=== PATIENT | male | born 1960 | race Caucasian/White ===

== ENCOUNTER 2016-09-13 22:23 | Inpatient (IN) | payer OTHER ==
--- NOTE | ~2016-09-13 | DS ---
Discharge Summary [facility] [address] [place]. [address] NAME: VARUN FLANNERY : 60 STATUS : DIS IN PAT#: [id number] AGE: 56 ADM/REG DATE : 09/14/16 MR#: [id number] REPORT SERV DATE: 09/24/16 DICTATED BY: AUDIE DSOUZA DATE: 09/23/16 REPORT STATUS : Draft TRANSCRIBED BY: MODL DATE: 09/23/16 ADMISSION DATE: 09/14/2016 DISCHARGE DATE: 09/23/2016 DISCHARGE DIAGNOSES: 1. Complicated diverticulitis. 2. Partial small bowel obstruction, now resolved. 3. History of atrial fibrillation with Hiltv-Rfbgyptny-Nlsiu syndrome, currently stable. 4. Hypertension. 5. Hypothyroidism. CONSULTANTS DURING THIS HOSPITALIZATION: Raulito Garza M.D., of General Surgery. PROCEDURES DONE DURING THIS HOSPITALIZATION: Please refer to interim summary dictated by Dr. Coardo. BRIEF HISTORY OF PRESENT ILLNESS: The patient is a 56-year-old white male, who presented with sepsis-like picture and acute diverticulitis, so he was admitted. For detailed history and physical exam, please see note dictated by Dr. Jatin Fair on 09/13/2016. HOSPITAL COURSE: After being admitted to the hospital, this patient was cared for by Dr. Corado. Please refer to Dr. Corado interim summary dictated on 09/20/2016. I took over this patient's care on 09/21/2016. This patient still had some nausea and had significant output in his NG tube. Over the next 24 hours, this patient improved. He started having more bowel movements, and they were liquid in nature. We started him on a clear liquid diet, removed his NG tube, and in the last 24 to 48 hours with this patient, we have advanced his diet to full liquid. He is having now more formed stools. He is fully ambulatory, and he feels well enough that he wants to go home and recover in the home setting. DISCHARGE DISPOSITION: Home. DISCHARGE ACTIVITY: As tolerated after release from the surgical appointment in three weeks. DISCHARGE DIET: GI, soft. DISCHARGE MEDICATIONS: Levaquin 750 mg p.o. once daily and Flagyl 500 mg p.o. three times daily, both for four days; aspirin 325 mg once daily; Peridex rinse as needed; Maximum D3, 1000 units once daily; Nature-Throid 113.75 mg once every morning; testosterone 200 mg IM once every 7 days; and Arimidex 1 mg once every 7 days. DISCHARGE FOLLOWUP: With Dr. Raulito Garza in two to three weeks and with Dr. Mcrae in one to two weeks. More than 30 minutes spent planning this patient's discharge, reconciling medications, writing prescriptions, discussing hospital care and followup with the patient, and documenting this discharge. Discharge Summary [address] [place]. [address] NAME: VARUN FLANNERY : 60 STATUS : DIS IN PAT#: [id number] AGE: 56 ADM/REG DATE : 09/14/16 MR#: [id number] REPORT SERV DATE: 09/24/16 DICTATED BY: AUDIE DSOUZA DATE: 09/23/16 REPORT STATUS : Draft TRANSCRIBED BY: BLAKE DATE: 09/23/16 DARLING/BLAKE Audie Dsouza M.D. / [id number] CC: Yoko Milton DENNIS C.
--- NOTE | ~2016-09-13 | HP ---
History And Physical [address] [place]. [address] NAME: VARUN FLANNERY : 60 STATUS : ADM IN [facility]#: [id number] AGE: 56 ADM/REG DATE : 09/14/16 MR#: [id number] REPORT SERV DATE: 09/14/16 DICTATED BY: JONATHAN WATERS DATE: 09/14/16 REPORT STATUS : Draft TRANSCRIBED BY: MODL DATE: 09/14/16 DATE OF ADMISSION: 09/14/2016 [facility] COMPLAINT: A 56-year-old male presenting with acute diverticulitis. HISTORY OF PRESENTING ILLNESS: The patient's history was obtained through careful interview with the patient, coupled with review of [facility] medical records. The patient, on (also his birthday), developed sudden onset of abdominal pain. It has increased over the last 48 hours. He describes as a midabdominal discomfort radiating to his left lower quadrant and also to the "top of my penis" and into his testicles sometimes a pressure-like quality, 12/10 severity that has become constant now. Has had subjective fevers, chills, and nausea, but no vomiting. A very poor appetite. Sometimes, he feels constipated. He has had lightheadedness. No confusion. No chest pain. No cough. No shortness of breath. About four days ago, he had a wisdom tooth extracted, but has had no pain or complications from this procedure. REVIEW OF SYSTEMS: Otherwise, a 14-point review of systems was obtained and was negative. PAST MEDICAL HISTORY: 1. Atrial fibrillation, status post cardiac ablation. 2. WPW, supraventricular tachycardia, nonsustained ventricular tachycardia, status post cardiac ablation. 3. Angina with negative catheterization of the heart. 4. Hypertension. 5. Hypothyroidism. 6. Hypotestosteronism. PAST SURGICAL HISTORY: 1. Cardiac ablation. 2. Right hand surgery. ALLERGIES: CODEINE. SOCIAL HISTORY: Quit smoking in 2010. Occasionally drinks wine. He is . Lives in [place], [place]. He has children, 10 grandchildren. 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 History And Physical [address] [place] [address] NAME: VARUN FLANNERY : 60 STATUS : ADM IN PAT#: [id number] AGE: 56 ADM/REG DATE : 09/14/16 MR#: [id number] REPORT SERV DATE: 09/14/16 DICTATED BY: JONATHAN WATERS DATE: 09/14/16 REPORT STATUS : Draft TRANSCRIBED BY: BLAKE DATE: 09/14/16 FAMILY HISTORY: Coronary artery disease. CURRENT MEDICATIONS: Include amoxicillin 875 mg p.o. b.i.d. to last 10 days, Arimidex 1 mg every week, aspirin 325 mg p.o. daily, chlorhexidine mouthwash since his wisdom tooth was extracted, vitamin D, hydrocodone p.r.n., ibuprofen p.r.n., Phenergan p.r.n., testosterone every week, Nature-Throid supplement. PHYSICAL EXAMINATION: VITAL SIGNS: Temperature 98.5, pulse 112, blood pressure 138/83, respiratory rate 20, O2 saturation 97% on room air. GENERAL: An ill-appearing male, who is describing distress from abdominal pain and nausea. HEENT: Pupils equal, round, and reactive to light. No conjunctival pallor. No scleral icterus. Nares are patent. Oropharynx is clear of obstruction. Dry mucous membranes. NECK: Trachea midline. No thyromegaly. LYMPH: No cervical lymphadenopathy. No supraclavicular lymphadenopathy. No inguinal lymphadenopathy. RESPIRATORY: Clear to auscultation at bases. No wheezes, rales, or rhonchi. Normal respiratory effort. CARDIOVASCULAR: Tachycardic. Regular rhythm. No murmurs, rubs, or gallops. No extremity edema is appreciated. ABDOMEN: Significant suprapubic area and lower pelvic left lower quadrant abdominal discomfort with guarding. No rebound. Nondistended. No hepatosplenomegaly. DERMATOLOGIC: Warm and dry extremities. No pallor. No cyanosis. PSYCHIATRIC: Normal affect. Good mood. Alert and oriented x3. LABORATORY DATA: White blood cell count 21, hemoglobin 17, hematocrit 49, platelets 300. Sodium 135, potassium 3.8, chloride 100, bicarb 23, BUN 12, creatinine 0.98, glucose 112, lipase 43, lactic acid 0.9. Liver enzymes within limits. STUDIES: CT scan of the abdomen shows acute diverticulitis. ASSESSMENT AND PLAN: 1. Sepsis with white blood cell count of 21. Tachycardia. Evidence of acute diverticulitis. Check blood cultures. Negative lactate. Place on IV antibiotics. 2. Acute diverticulitis. Place on IV narcotic pain management secondary to [address] on IV Flagyl, IV Levaquin. 3. History of arrhythmias. Check telemetry. KATHLEEN/BLAKE Jonathan Waters M.D. / [id number] History And Physical [address] [address] NAME: VARUN FLANNERY : 60 STATUS : ADM IN [facility]#: [id number] AGE: 56 ADM/REG DATE : 09/14/16 MR#: [id number] REPORT SERV DATE: 09/14/16 DICTATED BY: JONATHAN WATERS DATE: 09/14/16 REPORT STATUS : Draft TRANSCRIBED BY: BLAKE DATE: 09/14/16 CC: Yoko Milton M.D., F.A.C.C.
--- NOTE | ~2016-09-13 | CN ---
Consultation Report [facility] [address] [place]. [address] NAME: VARUN FLANNERY : 60 STATUS : ADM IN PAT#: [id number] AGE: 56 ADM/REG DATE : 09/14/16 MR#: [id number] REPORT SERV DATE: 09/17/16 DICTATED BY: RAULITO HAYNES DATE: 09/16/16 REPORT STATUS : Draft TRANSCRIBED BY: MODL DATE: 09/16/16 CONSULT NOTE DATE OF CONSULTATION: 09/16/2016 REASON FOR REQUEST: Evaluation of diverticulitis, possible bowel obstruction. HISTORY OF PRESENT ILLNESS: The patient is a 56-year-old gentleman, who was in his usual state of health, when he started developing abdominal pain last week. This progressively worsened. It was associated with constipation and some lower abdominal pain. He states it was in suprapubic area and left side initially. Since it persisted and progressively worsened and he felt subjectively febrile, he initially went to an urgent care and then presented to [facility] Emergency Room. Workup included a noncontrast CT scan which demonstrated evidence of uncomplicated diverticulitis. While hospitalized, his white count and suprapubic tenderness markedly improved, however, his reports that he had two episodes of emesis, one yesterday and one the day before yesterday, and he has really not eaten much, and he has not had a bowel movement at all he states since last Tuesday. They did give him some milk of magnesia earlier today, and he had some loose stools and passed some flatus but he said he did not have a normal bowel movement. Then around 1:30 or 2 o'clock this afternoon, he started developing worsening abdominal pain. He states the pain will sometimes double over and then ease up. He has never experienced pain similar as before. Denies any precipitating or alleviating factors. He did try to have earlier today. He has not had any emesis today but the reports he really has had two bouts of emesis and has not eaten much since he has been hospitalized. Abdominal film on does demonstrate some evidence of dilated small bowel, and a flat and upright obtained today demonstrates evidence for possible bowel obstruction with massively dilated small bowel. PAST MEDICAL HISTORY: Xbwbf-Uqlvwzovi-Fqeni syndrome, hypertension, hypothyroidism, and arthritis. PREVIOUS SURGERIES: Include cardiac ablation and hand surgery. ALLERGIES: CODEINE WHICH CAUSES NAUSEA AND VOMITING. SOCIAL HISTORY: He quit smoking several years ago. He drinks wine on occasion. He is . 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 FAMILY HISTORY: Noncontributory. MEDICATIONS: Medications taken at home include Amoxil, Arimidex, aspirin, Motrin, and testosterone. REVIEW OF SYSTEMS: Consultation Report [place] [id number] [facility] [place]. [address] NAME: VARUN FLANNERY : 60 STATUS : ADM IN [facility]#: [id number] AGE: 56 ADM/REG DATE : 09/14/16 MR#: [id number] REPORT SERV DATE: 09/17/16 DICTATED BY: RAULITO HAYNES DATE: 09/16/16 REPORT STATUS : Draft TRANSCRIBED BY: BLAKE DATE: 09/16/16 A comprehensive 12-point review of systems obtained and completely negative other than what is mentioned in history of present illness. PHYSICAL EXAMINATION: VITAL SIGNS: Temperature is 97.8, pulse 101, respirations 22, blood pressure 138/93. GENERAL: He is a well-developed gentleman who is in no acute cardiopulmonary distress. HEENT: Pupils are equal, round, and reactive to light. Extraocular movements intact. Conjunctivae nonicteric. NECK: Supple. He has no jugular venous distention. No carotid bruits. No cervical lymphadenopathy. PULMONARY: Normal respiratory effort. Breath sounds are clear. CARDIOVASCULAR: Regular rate and rhythm. ABDOMEN: Distended. His bowel sounds seem diminished. He has no palpable masses and no diffuse peritoneal signs. LABORATORY DATA: White blood cell count is 9 this morning. Hematocrit 44, platelet count 320. Sodium 139, potassium 3.6, chloride 102, CO2 of 25, BUN 12, creatinine 0.7, glucose 107. Flat and upright abdominal films demonstrate markedly dilated small bowel up to 5 cm. There is no pneumoperitoneum identified. Blood cultures are normal. CT scan from the 17th emergency room demonstrates evidence of diverticulitis with pelvic abscess or perforation. ASSESSMENT: 1. Diverticulitis. 2. Ileus versus a mechanical small bowel obstruction. 3. History of Oyagn-Ujfzvubxm-Xeypp syndrome and hypertension. PLAN: I recommend nasogastric tube for decompression. A repeat CT scan is ordered and is pending at this time. We will also obtain a small-bowel follow-through on him to help determine if this is an ileus from his diverticulitis versus mechanical obstruction. He has not had any previous abdominal surgeries. We will await the CT scan to evaluate him further, and we will continue to follow this patient along with you. AMANDEEP/BLAKE Raulito Haynes M.D. Consultation Report [address] [place]. [address] NAME: VARUN FLANNERY : 60 STATUS : ADM IN PAT#: [id number] AGE: 56 ADM/REG DATE : 09/14/16 MR#: [id number] REPORT SERV DATE: 09/17/16 DICTATED BY: RAULITO HAYNES DATE: 09/16/16 REPORT STATUS : Draft TRANSCRIBED BY: BLAKE DATE: 09/16/16 / [id number] CC: Yoko Escobar
--- NOTE | ~2016-09-13 | IDS ---
Interim Discharge Summary [facility] [address] [place]. [address] NAME: VARUN FLANNERY : 60 STATUS : ADM IN [facility]#: [id number] AGE: 56 ADM/REG DATE : 09/14/16 MR#: [id number] REPORT SERV DATE: 09/20/16 DICTATED BY: ERIK BERMAN DATE: 09/20/16 REPORT STATUS : Draft TRANSCRIBED BY: MODL DATE: 09/20/16 ADMISSION DATE: 09/14/2016 DISCHARGE DATE: CURRENT HOSPITAL DIAGNOSES: 1. Diverticulitis. 2. Small bowel obstruction. 3. History of atrial fibrillation, Msoqe-Eflexsboh-Kuadz, no recurrence. 4. Hypertension. 5. Hypothyroidism. CONSULTATIONS: Surgery, Dr. Garza. PROCEDURES: CT of abdomen and pelvis done on 09/13/2016 showing acute uncomplicated sigmoid diverticulitis. Repeat CT on 09/16/2016 showing a small amount of pneumoperitoneum, ascites suggesting a bowel perforation, although the site is not identified, persistent diffuse thickening in the sigmoid colon with mild diverticulosis and infiltration of surrounding fat planes suggesting acute diverticulitis, increasing infiltration of small bowel mesentery throughout the abdomen and pelvis, dilated segment of proximal small bowel to the level of the mid ilium measuring up to 4.2 cm in diameter with air-fluid levels numerous, suggest a new onset of moderate severe asymmetric small bowel ileus or partial small bowel obstruction, atelectasis enteric to proximal stomach. Repeat CT of abdomen and pelvis on 09/20/2016 showing minimal pneumoperitoneum ascites, dilated proximal and mid small bowel with nondilated distal small bowel indicating probable low-grade partial small bowel obstruction, minimal bibasilar atelectasis, nasogastric tube, gastric body diverticulosis with sigmoid diverticulitis, not significantly changed. CURRENT PHYSICAL FINDINGS AND HISTORY OF PRESENT ILLNESS: Please see dictated H and P by Dr. Fair. In brief, the patient is a 56-year-old male with above medical history who presented with abdominal pain, suprapubic and rectal pain. Vital signs at time of admission; temperature was 98.5, the patient's T-maxs have been in the 99 point range, heart rates have been consistently approximately 70s, and blood pressures have been 150s to 160 systolic. LABORATORY DATA: BMP on admission and multiple rechecks have been normal. Of note, his TSH on 09/14/2016 was 10. Lipase on admission was 46. Lactates have been normal throughout his hospital stay. White count on presentation was 21,000. He sequentially decreased until 09/16/2016 to white count of 9. He has been approximately 12 on repeat checks since that time. Urinalysis was unremarkable. Blood cultures done on 09/13/2016 are negative to date. The patient was admitted for uncomplicated diverticulitis. He was started on Levaquin and Flagyl, electrolyte replacement, held n.p.o., reasonable pain and antiemetics were given. He was placed on a liquid diet. I saw him on 09/14/2016. He was improving. His diet was increased as tolerated. His pain medications were making him nauseated, they were changed to Dilaudid. On 09/15/2016, serial labs were followed. He requested university administrative assistant with his bowel movement. Milk of magnesium and lactulose were given. His n.p.o. was minimal, so IV fluids were started on 09/16/2016. Flat and upright were also done. He appeared to have obstruction. Surgical consult was requested and repeat CT of abdomen was done with the Interim Discharge Summary [address] [place]. [address] NAME: VARUN FLANNERY : 60 STATUS : ADM IN [facility]#: [id number] AGE: 56 ADM/REG DATE : 09/14/16 MR#: [id number] REPORT SERV DATE: 09/20/16 DICTATED BY: ERIK BERMAN DATE: 09/20/16 REPORT STATUS : Draft TRANSCRIBED BY: BLAKE DATE: 09/20/16 noted bowel obstruction and free air on his CT. Surgery was consulted. NG tube was placed. Gastrografin small bowel followthrough was ordered, however, the patient was not able to retain the contrast. He was also switched to Zosyn at that time. His IV fluids were continued. He was held n.p.o. Serial x-rays were done with noted improvement. His Synthroid was changed to IV. He had some tentative urinary retention, but this resolved. He continued to improve. Serial CTs were showing improvement. He has been started on some mild liquids at this time. DISPOSITION: PT will be seeing him. Surgery will continue dietary recommendations and removal of his tube when appropriate. He is still on IV Zosyn. He continues to improve clinically. TLF/MODL Erik Berman M.D. / [id number] CC: Yoko Escobar DENNIS C.
[2016-09-13 21:39] LABS: BASOPHILS 0.1 %; BASOPHILS ABSOLUTE 0.02 10/3/uL (0.0-0.16); EOSINOPHILS 0 %; IMMATURE GRANULOCYTES 0.3 %; IMMATURE GRANULOCYTES ABSOLUTE 0.07 10/3/uL (0.0-0.11); LYMPHOCYTES 4.2 %; LYMPHOCYTES ABSOLUTE 0.88 10/3/uL (0.67-4.30); MEAN PLATELET VOLUME 9.4 fL (9.2-13.0); MONOCYTES 5.9 %; MONOCYTES ABSOLUTE 1.24 10/3/uL (0.21-1.20); NEUTROPHILS 89.5 %; NEUTROPHILS ABSOLUTE 18.74 10/3/uL (2.02-8.40); PLATELET COUNT 300 10/3/uL (150-400); RBC DISTRIBUTION WIDTH 15.2 % (12.0-16.0); RED CELL COUNT 5.63 10/6/uL (4.7-6.1)
[2016-09-13 21:41] LABS: ER CBC TAT 0 Hrs 09 Mins; HEMATOCRIT 48.6 % (40.0-51.0); HEMOGLOBIN 16.8 g/dL (13.6-17.8); MANUAL DIFF NO %; MEAN CORPUS HGB CONC 34.6 g/dL (32.0-36.0); MEAN CORPUSCULAR HEMOGLOB 29.8 pg (26.0-34.0); MEAN CORPUSCULAR VOLUME 86.3 fL (80-100)
[2016-09-13 21:55] LABS: A/G RATIO 0.8 (0.7-1.9); ALBUMIN 3.6 G/DL (3.5-5.0); ALKALINE PHOSPHATASE 41 U/L (45-117); BUN (BLOOD UREA NITROGEN) 12 MG/DL (6-23); CALCIUM, SERUM 8.9 MG/DL (8.5-10.4); CHLORIDE, SERUM 100 MMOL/L (96-112); CO2 (CARBON DIOXIDE) 23 MMOL/L (24-34); CREATININE 0.98 MG/DL (0.70-1.30); GFR AFRICAN AMERICAN 99 ML/MIN (>=60); GFR NON AFRICAN AMERICAN 86 ML/MIN (>=60); GLOBULIN 4.3 G/DL (2.5-4.1); GLUCOSE, SERUM 112 MG/DL (60-99); POTASSIUM, SERUM 3.8 MMOL/L (3.5-5.3); SGOT(AST) 8 U/L (5-40); SGPT(ALT) 23 U/L (5-65); SODIUM, SERUM 135 MMOL/L (135-148); TOTAL BILIRUBIN 1.3 MG/DL (0-1.2); TOTAL PROTEIN 7.9 G/DL (6.0-8.5)
[~2016-09-13 22:23] MED LIST: ARIMIDEX1 PO; ARMOUR THYRO60 MG PO; ASABAYER PO; FISH OIL1200 MG PO; PROGESTERONE CREAM TOP; PROTONIX PO; TESTOST CYP100 MG/ML IM
[2016-09-13 23:17] LABS: ASCORBIC ACID (UR NOT ORDER) NEG (NEG); BILIRUBIN, URINE NEGATIVE (NEG); ER URINALYSIS TAT 0 Hrs 00 Mins; KETONE, URINE TRACE MG/DL (NEG); LEUKOCYTE ESTERASE(NOT OR NEG (NEG); NITRITE (URINE) NEG (NEG); WBC (NOT ORDERED) (RFLEX) 1 (0-5)
[2016-09-13 23:30] LABS: LACTATE 0.9 MMOL/L (0.3-2.4)
[2016-09-13] MEDS ORDERED: ASABAYER PO (23:48)
[2016-09-13] MEDS ORDERED: NORCO1 TA1 PO (23:49)
[2016-09-13] MEDS ORDERED: NATURE THROID PO (23:49)
[2016-09-13] MEDS ORDERED: PR25 PO (23:49)
[2016-09-13] MEDS ORDERED: PERIDEX PO (23:50)
[2016-09-13] MEDS ORDERED: AMOXIL875 MG PO (23:50)
[2016-09-13] MEDS ORDERED: IBU600 PO (23:51)
[2016-09-13] MEDS ORDERED: TESTOST CYP100 MG/ML IM (23:52)
[2016-09-13] MEDS ORDERED: ARIMIDEX1 PO (23:52)
[2016-09-13] MEDS ORDERED: MAXIMUM D3 PO (23:53)
[2016-09-14 05:36] LABS: BASOPHILS 0.1 %; BASOPHILS ABSOLUTE 0.02 10/3/uL (0.0-0.16); EOSINOPHILS 0.2 %; EOSINOPHILS ABSOLUTE 0.03 10/3/uL (0.0-0.53); HEMATOCRIT 45.5 % (40.0-51.0); HEMOGLOBIN 15.5 g/dL (13.6-17.8); IMMATURE GRANULOCYTES 0.4 %; IMMATURE GRANULOCYTES ABSOLUTE 0.06 10/3/uL (0.0-0.11); LYMPHOCYTES 4.7 %; LYMPHOCYTES ABSOLUTE 0.78 10/3/uL (0.67-4.30); MANUAL DIFF NO %; MEAN CORPUS HGB CONC 34.1 g/dL (32.0-36.0); MEAN CORPUSCULAR HEMOGLOB 29.8 pg (26.0-34.0); MEAN CORPUSCULAR VOLUME 87.5 fL (80-100); MEAN PLATELET VOLUME 9.6 fL (9.2-13.0); MONOCYTES 7.1 %; MONOCYTES ABSOLUTE 1.18 10/3/uL (0.21-1.20); NEUTROPHILS 87.5 %; NEUTROPHILS ABSOLUTE 14.53 10/3/uL (2.02-8.40); PLATELET COUNT 267 10/3/uL (150-400); RBC DISTRIBUTION WIDTH 14.9 % (12.0-16.0); WHITE BLOOD CELLS 16.6 10/3/uL (4.5-10.5)
[2016-09-14 05:43] LABS: INTERNATIONAL NORMAL RATI 1.3 UNITS (-); PROTIME (NOT ORD) 16.3 SEC (12.0-14.5)
[2016-09-14 05:59] LABS: A/G RATIO 0.7 (0.7-1.9); ALKALINE PHOSPHATASE 37 U/L (45-117); BUN (BLOOD UREA NITROGEN) 12 MG/DL (6-23); CALCIUM, SERUM 8.4 MG/DL (8.5-10.4); CHLORIDE, SERUM 100 MMOL/L (96-112); CO2 (CARBON DIOXIDE) 26 MMOL/L (24-34); CREATININE 0.89 MG/DL (0.70-1.30); GFR AFRICAN AMERICAN 111 ML/MIN (>=60); GFR NON AFRICAN AMERICAN 96 ML/MIN (>=60); GLOBULIN 4.1 G/DL (2.5-4.1); GLUCOSE, SERUM 105 MG/DL (60-99); POTASSIUM, SERUM 3.9 MMOL/L (3.5-5.3); SGOT(AST) 6 U/L (5-40); SGPT(ALT) 23 U/L (5-65); SODIUM, SERUM 136 MMOL/L (135-148); TOTAL BILIRUBIN 1.5 MG/DL (0-1.2); TOTAL PROTEIN 7.1 G/DL (6.0-8.5)
[2016-09-15 05:00] LABS: BASOPHILS 0.2 %; BASOPHILS ABSOLUTE 0.02 10/3/uL (0.0-0.16); EOSINOPHILS 1.4 %; EOSINOPHILS ABSOLUTE 0.16 10/3/uL (0.0-0.53); HEMATOCRIT 45.6 % (40.0-51.0); HEMOGLOBIN 15.2 g/dL (13.6-17.8); IMMATURE GRANULOCYTES 0.3 %; IMMATURE GRANULOCYTES ABSOLUTE 0.03 10/3/uL (0.0-0.11); LYMPHOCYTES 7.4 %; LYMPHOCYTES ABSOLUTE 0.85 10/3/uL (0.67-4.30); MANUAL DIFF NO %; MEAN CORPUS HGB CONC 33.3 g/dL (32.0-36.0); MEAN CORPUSCULAR HEMOGLOB 29.7 pg (26.0-34.0); MEAN CORPUSCULAR VOLUME 89.1 fL (80-100); MEAN PLATELET VOLUME 9.4 fL (9.2-13.0); MONOCYTES 9.3 %; MONOCYTES ABSOLUTE 1.06 10/3/uL (0.21-1.20); NEUTROPHILS 81.4 %; PLATELET COUNT 261 10/3/uL (150-400); RBC DISTRIBUTION WIDTH 14.5 % (12.0-16.0); RED CELL COUNT 5.12 10/6/uL (4.7-6.1); WHITE BLOOD CELLS 11.4 10/3/uL (4.5-10.5)
[2016-09-15 05:13] LABS: ALKALINE PHOSPHATASE 33 U/L (45-117); BUN (BLOOD UREA NITROGEN) 10 MG/DL (6-23); CALCIUM, SERUM 8.4 MG/DL (8.5-10.4); CHLORIDE, SERUM 106 MMOL/L (96-112); CO2 (CARBON DIOXIDE) 26 MMOL/L (24-34); CREATININE 0.78 MG/DL (0.70-1.30); GFR AFRICAN AMERICAN 117 ML/MIN (>=60); GFR NON AFRICAN AMERICAN 101 ML/MIN (>=60); GLUCOSE, SERUM 98 MG/DL (60-99); SGPT(ALT) 14 U/L (5-65); SODIUM, SERUM 139 MMOL/L (135-148)
[2016-09-15 05:14] LABS: A/G RATIO 0.6 (0.7-1.9); ALBUMIN 2.3 G/DL (3.5-5.0); GLOBULIN 3.7 G/DL (2.5-4.1); POTASSIUM, SERUM 5.1 MMOL/L (3.5-5.3); SGOT(AST) 3 U/L (5-40)
[2016-09-16 04:26] LABS: BASOPHILS 0.1 %; BASOPHILS ABSOLUTE 0.01 10/3/uL (0.0-0.16); EOSINOPHILS 2.1 %; EOSINOPHILS ABSOLUTE 0.19 10/3/uL (0.0-0.53); IMMATURE GRANULOCYTES 0.3 %; IMMATURE GRANULOCYTES ABSOLUTE 0.03 10/3/uL (0.0-0.11); LYMPHOCYTES 8.3 %; LYMPHOCYTES ABSOLUTE 0.75 10/3/uL (0.67-4.30); MEAN CORPUS HGB CONC 34.1 g/dL (32.0-36.0); MEAN CORPUSCULAR HEMOGLOB 29.7 pg (26.0-34.0); MEAN CORPUSCULAR VOLUME 87.1 fL (80-100); MEAN PLATELET VOLUME 9.3 fL (9.2-13.0); MONOCYTES 11.6 %; MONOCYTES ABSOLUTE 1.04 10/3/uL (0.21-1.20); NEUTROPHILS 77.6 %; NEUTROPHILS ABSOLUTE 6.97 10/3/uL (2.02-8.40); PLATELET COUNT 320 10/3/uL (150-400); RBC DISTRIBUTION WIDTH 14.3 % (12.0-16.0); RED CELL COUNT 5.05 10/6/uL (4.7-6.1)
[2016-09-16 04:27] LABS: MANUAL DIFF NO %
[2016-09-16 04:37] LABS: BUN (BLOOD UREA NITROGEN) 12 MG/DL (6-23); CALCIUM, SERUM 8.6 MG/DL (8.5-10.4); CHLORIDE, SERUM 102 MMOL/L (96-112); CO2 (CARBON DIOXIDE) 25 MMOL/L (24-34); CREATININE 0.79 MG/DL (0.70-1.30); GFR AFRICAN AMERICAN 116 ML/MIN (>=60); GFR NON AFRICAN AMERICAN 100 ML/MIN (>=60); GLUCOSE, SERUM 107 MG/DL (60-99); SODIUM, SERUM 139 MMOL/L (135-148)
[2016-09-16 04:38] LABS: POTASSIUM, SERUM 3.6 MMOL/L (3.5-5.3)
[2016-09-17 00:08] LABS: BASOPHILS 0.1 %; BASOPHILS ABSOLUTE 0.01 10/3/uL (0.0-0.16); EOSINOPHILS 0 %; HEMATOCRIT 43.5 % (40.0-51.0); HEMOGLOBIN 14.8 g/dL (13.6-17.8); IMMATURE GRANULOCYTES 0.3 %; IMMATURE GRANULOCYTES ABSOLUTE 0.04 10/3/uL (0.0-0.11); LYMPHOCYTES 6.3 %; LYMPHOCYTES ABSOLUTE 0.74 10/3/uL (0.67-4.30); MEAN CORPUSCULAR HEMOGLOB 29.8 pg (26.0-34.0); MEAN CORPUSCULAR VOLUME 87.5 fL (80-100); MEAN PLATELET VOLUME 9.3 fL (9.2-13.0); MONOCYTES 7.1 %; MONOCYTES ABSOLUTE 0.84 10/3/uL (0.21-1.20); NEUTROPHILS 86.2 %; NEUTROPHILS ABSOLUTE 10.14 10/3/uL (2.02-8.40); PLATELET COUNT 333 10/3/uL (150-400); RBC DISTRIBUTION WIDTH 14.2 % (12.0-16.0); RED CELL COUNT 4.97 10/6/uL (4.7-6.1); WHITE BLOOD CELLS 11.8 10/3/uL (4.5-10.5)
[2016-09-17 00:09] LABS: MANUAL DIFF NO %
[2016-09-17 00:17] LABS: INTERNATIONAL NORMAL RATI 1.3 UNITS (-); PROTIME (NOT ORD) 16.3 SEC (12.0-14.5)
[2016-09-17 00:24] LABS: A/G RATIO 0.6 (0.7-1.9); ALBUMIN 2.4 G/DL (3.5-5.0); ALKALINE PHOSPHATASE 33 U/L (45-117); BUN (BLOOD UREA NITROGEN) 14 MG/DL (6-23); CHLORIDE, SERUM 107 MMOL/L (96-112); CO2 (CARBON DIOXIDE) 27 MMOL/L (24-34); CREATININE 0.85 MG/DL (0.70-1.30); GFR AFRICAN AMERICAN 113 ML/MIN (>=60); GFR NON AFRICAN AMERICAN 97 ML/MIN (>=60); GLOBULIN 3.8 G/DL (2.5-4.1); GLUCOSE, SERUM 121 MG/DL (60-99); SGOT(AST) 7 U/L (5-40); SGPT(ALT) 14 U/L (5-65); SODIUM, SERUM 141 MMOL/L (135-148); TOTAL PROTEIN 6.2 G/DL (6.0-8.5)
[2016-09-17 00:27] LABS: POTASSIUM, SERUM 4.5 MMOL/L (3.5-5.3)
[2016-09-17 06:47] LABS: BASOPHILS 0.1 %; BASOPHILS ABSOLUTE 0.01 10/3/uL (0.0-0.16); EOSINOPHILS 0.1 %; EOSINOPHILS ABSOLUTE 0.01 10/3/uL (0.0-0.53); HEMATOCRIT 43.8 % (40.0-51.0); HEMOGLOBIN 14.8 g/dL (13.6-17.8); IMMATURE GRANULOCYTES 0.4 %; IMMATURE GRANULOCYTES ABSOLUTE 0.05 10/3/uL (0.0-0.11); LYMPHOCYTES 6.7 %; MEAN CORPUS HGB CONC 33.8 g/dL (32.0-36.0); MEAN CORPUSCULAR HEMOGLOB 29.7 pg (26.0-34.0); MEAN CORPUSCULAR VOLUME 87.8 fL (80-100); MEAN PLATELET VOLUME 9.6 fL (9.2-13.0); MONOCYTES 7.9 %; MONOCYTES ABSOLUTE 0.95 10/3/uL (0.21-1.20); NEUTROPHILS 84.8 %; NEUTROPHILS ABSOLUTE 10.19 10/3/uL (2.02-8.40); PLATELET COUNT 321 10/3/uL (150-400); RBC DISTRIBUTION WIDTH 14.6 % (12.0-16.0); RED CELL COUNT 4.99 10/6/uL (4.7-6.1)
[2016-09-17 06:51] LABS: MANUAL DIFF NO %
[2016-09-17 07:06] LABS: BUN (BLOOD UREA NITROGEN) 14 MG/DL (6-23); CALCIUM, SERUM 8.3 MG/DL (8.5-10.4); CHLORIDE, SERUM 107 MMOL/L (96-112); CO2 (CARBON DIOXIDE) 29 MMOL/L (24-34); CREATININE 0.94 MG/DL (0.70-1.30); GFR AFRICAN AMERICAN 105 ML/MIN (>=60); GFR NON AFRICAN AMERICAN 90 ML/MIN (>=60); GLUCOSE, SERUM 111 MG/DL (60-99); POTASSIUM, SERUM 5.1 MMOL/L (3.5-5.3); SODIUM, SERUM 142 MMOL/L (135-148)
[2016-09-18 06:02] LABS: CALCIUM, SERUM 8.4 MG/DL (8.5-10.4); CHLORIDE, SERUM 110 MMOL/L (96-112); CO2 (CARBON DIOXIDE) 28 MMOL/L (24-34); CREATININE 0.83 MG/DL (0.70-1.30); GFR AFRICAN AMERICAN 114 ML/MIN (>=60); GFR NON AFRICAN AMERICAN 98 ML/MIN (>=60); GLUCOSE, SERUM 114 MG/DL (60-99); SODIUM, SERUM 146 MMOL/L (135-148)
[2016-09-18 06:04] LABS: BUN (BLOOD UREA NITROGEN) 20 MG/DL (6-23)
[2016-09-18 06:10] LABS: BASOPHILS 0.1 %; BASOPHILS ABSOLUTE 0.02 10/3/uL (0.0-0.16); EOSINOPHILS 0.1 %; EOSINOPHILS ABSOLUTE 0.01 10/3/uL (0.0-0.53); HEMATOCRIT 42.5 % (40.0-51.0); HEMOGLOBIN 13.9 g/dL (13.6-17.8); IMMATURE GRANULOCYTES 0.3 %; IMMATURE GRANULOCYTES ABSOLUTE 0.04 10/3/uL (0.0-0.11); LYMPHOCYTES 3.7 %; MEAN CORPUS HGB CONC 32.7 g/dL (32.0-36.0); MEAN CORPUSCULAR HEMOGLOB 29.1 pg (26.0-34.0); MEAN CORPUSCULAR VOLUME 89.1 fL (80-100); MEAN PLATELET VOLUME 9.7 fL (9.2-13.0); MONOCYTES 9.2 %; MONOCYTES ABSOLUTE 1.25 10/3/uL (0.21-1.20); NEUTROPHILS 86.6 %; NEUTROPHILS ABSOLUTE 11.79 10/3/uL (2.02-8.40); PLATELET COUNT 354 10/3/uL (150-400); RBC DISTRIBUTION WIDTH 14.7 % (12.0-16.0); RED CELL COUNT 4.77 10/6/uL (4.7-6.1); WHITE BLOOD CELLS 13.6 10/3/uL (4.5-10.5)
[2016-09-18 06:12] LABS: MANUAL DIFF NO %
[2016-09-19 05:43] LABS: BASOPHILS 0.2 %; BASOPHILS ABSOLUTE 0.03 10/3/uL (0.0-0.16); EOSINOPHILS 0.1 %; EOSINOPHILS ABSOLUTE 0.01 10/3/uL (0.0-0.53); HEMATOCRIT 40.2 % (40.0-51.0); HEMOGLOBIN 13.1 g/dL (13.6-17.8); IMMATURE GRANULOCYTES 0.4 %; IMMATURE GRANULOCYTES ABSOLUTE 0.07 10/3/uL (0.0-0.11); LYMPHOCYTES 4.3 %; LYMPHOCYTES ABSOLUTE 0.71 10/3/uL (0.67-4.30); MEAN CORPUS HGB CONC 32.6 g/dL (32.0-36.0); MEAN CORPUSCULAR HEMOGLOB 28.9 pg (26.0-34.0); MEAN CORPUSCULAR VOLUME 88.7 fL (80-100); MEAN PLATELET VOLUME 9.5 fL (9.2-13.0); MONOCYTES 6.3 %; MONOCYTES ABSOLUTE 1.04 10/3/uL (0.21-1.20); NEUTROPHILS 88.7 %; NEUTROPHILS ABSOLUTE 14.77 10/3/uL (2.02-8.40); PLATELET COUNT 360 10/3/uL (150-400); RED CELL COUNT 4.53 10/6/uL (4.7-6.1); WHITE BLOOD CELLS 16.6 10/3/uL (4.5-10.5)
[2016-09-19 05:46] LABS: A/G RATIO 0.5 (0.7-1.9); ALBUMIN 2.1 G/DL (3.5-5.0); BUN (BLOOD UREA NITROGEN) 18 MG/DL (6-23); CALCIUM, SERUM 8.5 MG/DL (8.5-10.4); CHLORIDE, SERUM 112 MMOL/L (96-112); CO2 (CARBON DIOXIDE) 25 MMOL/L (24-34); CREATININE 0.74 MG/DL (0.70-1.30); GFR AFRICAN AMERICAN 120 ML/MIN (>=60); GFR NON AFRICAN AMERICAN 103 ML/MIN (>=60); GLUCOSE, SERUM 98 MG/DL (60-99); POTASSIUM, SERUM 3.9 MMOL/L (3.5-5.3); SGOT(AST) 8 U/L (5-40); SGPT(ALT) 11 U/L (5-65); SODIUM, SERUM 147 MMOL/L (135-148); TOTAL BILIRUBIN 0.7 MG/DL (0-1.2); TOTAL PROTEIN 6.1 G/DL (6.0-8.5)
[2016-09-19 05:49] LABS: ALKALINE PHOSPHATASE 42 U/L (45-117)
[2016-09-19 05:56] LABS: MANUAL DIFF NO %
[2016-09-20 08:38] LABS: BASOPHILS 0.4 %; BASOPHILS ABSOLUTE 0.05 10/3/uL (0.0-0.16); EOSINOPHILS 0.8 %; HEMATOCRIT 40.6 % (40.0-51.0); HEMOGLOBIN 13.5 g/dL (13.6-17.8); IMMATURE GRANULOCYTES 0.4 %; IMMATURE GRANULOCYTES ABSOLUTE 0.05 10/3/uL (0.0-0.11); LYMPHOCYTES 4.8 %; LYMPHOCYTES ABSOLUTE 0.61 10/3/uL (0.67-4.30); MEAN CORPUS HGB CONC 33.3 g/dL (32.0-36.0); MEAN CORPUSCULAR HEMOGLOB 29.7 pg (26.0-34.0); MEAN CORPUSCULAR VOLUME 89.2 fL (80-100); MEAN PLATELET VOLUME 9.6 fL (9.2-13.0); MONOCYTES 7.3 %; MONOCYTES ABSOLUTE 0.93 10/3/uL (0.21-1.20); NEUTROPHILS 86.3 %; NEUTROPHILS ABSOLUTE 10.96 10/3/uL (2.02-8.40); PLATELET COUNT 309 10/3/uL (150-400); RBC DISTRIBUTION WIDTH 14.5 % (12.0-16.0); RED CELL COUNT 4.55 10/6/uL (4.7-6.1); WHITE BLOOD CELLS 12.7 10/3/uL (4.5-10.5)
[2016-09-20 08:39] LABS: MANUAL DIFF NO %
[2016-09-20 08:50] LABS: CALCIUM, SERUM 8.1 MG/DL (8.5-10.4); CHLORIDE, SERUM 110 MMOL/L (96-112); CO2 (CARBON DIOXIDE) 23 MMOL/L (24-34); CREATININE 0.62 MG/DL (0.70-1.30); GFR AFRICAN AMERICAN 129 ML/MIN (>=60); GFR NON AFRICAN AMERICAN 111 ML/MIN (>=60); GLUCOSE, SERUM 90 MG/DL (60-99); PHOSPHORUS, SERUM 2.7 MG/DL (2.5-4.5); POTASSIUM, SERUM 3.5 MMOL/L (3.5-5.3); SODIUM, SERUM 143 MMOL/L (135-148)
[2016-09-20 08:51] LABS: BUN (BLOOD UREA NITROGEN) 13 MG/DL (6-23)
[2016-09-21 04:39] LABS: BASOPHILS 0.2 %; BASOPHILS ABSOLUTE 0.03 10/3/uL (0.0-0.16); EOSINOPHILS 1.6 %; EOSINOPHILS ABSOLUTE 0.23 10/3/uL (0.0-0.53); HEMATOCRIT 38.1 % (40.0-51.0); HEMOGLOBIN 12.6 g/dL (13.6-17.8); IMMATURE GRANULOCYTES 0.3 %; IMMATURE GRANULOCYTES ABSOLUTE 0.04 10/3/uL (0.0-0.11); LYMPHOCYTES 5.9 %; LYMPHOCYTES ABSOLUTE 0.84 10/3/uL (0.67-4.30); MANUAL DIFF NO %; MEAN CORPUS HGB CONC 33.1 g/dL (32.0-36.0); MEAN CORPUSCULAR HEMOGLOB 28.8 pg (26.0-34.0); MEAN CORPUSCULAR VOLUME 87.2 fL (80-100); MEAN PLATELET VOLUME 9.4 fL (9.2-13.0); MONOCYTES 5.7 %; MONOCYTES ABSOLUTE 0.81 10/3/uL (0.21-1.20); NEUTROPHILS 86.3 %; NEUTROPHILS ABSOLUTE 12.23 10/3/uL (2.02-8.40); PLATELET COUNT 368 10/3/uL (150-400); RED CELL COUNT 4.37 10/6/uL (4.7-6.1); WHITE BLOOD CELLS 14.2 10/3/uL (4.5-10.5)
[2016-09-21 04:46] LABS: A/G RATIO 0.5 (0.7-1.9); ALBUMIN 1.9 G/DL (3.5-5.0); ALKALINE PHOSPHATASE 37 U/L (45-117); BUN (BLOOD UREA NITROGEN) 11 MG/DL (6-23); CHLORIDE, SERUM 108 MMOL/L (96-112); CO2 (CARBON DIOXIDE) 26 MMOL/L (24-34); CREATININE 0.63 MG/DL (0.70-1.30); GFR AFRICAN AMERICAN 128 ML/MIN (>=60); GFR NON AFRICAN AMERICAN 110 ML/MIN (>=60); GLOBULIN 3.5 G/DL (2.5-4.1); GLUCOSE, SERUM 81 MG/DL (60-99); POTASSIUM, SERUM 3.2 MMOL/L (3.5-5.3); SGOT(AST) 14 U/L (5-40); SGPT(ALT) 12 U/L (5-65); SODIUM, SERUM 143 MMOL/L (135-148); TOTAL BILIRUBIN 0.6 MG/DL (0-1.2); TOTAL PROTEIN 5.4 G/DL (6.0-8.5)
[2016-09-22 05:07] LABS: BASOPHILS 0.2 %; BASOPHILS ABSOLUTE 0.03 10/3/uL (0.0-0.16); EOSINOPHILS 2.1 %; EOSINOPHILS ABSOLUTE 0.28 10/3/uL (0.0-0.53); HEMOGLOBIN 13.4 g/dL (13.6-17.8); IMMATURE GRANULOCYTES 0.7 %; LYMPHOCYTES 6.5 %; LYMPHOCYTES ABSOLUTE 0.88 10/3/uL (0.67-4.30); MEAN CORPUS HGB CONC 33.5 g/dL (32.0-36.0); MEAN CORPUSCULAR HEMOGLOB 28.9 pg (26.0-34.0); MEAN CORPUSCULAR VOLUME 86.4 fL (80-100); MEAN PLATELET VOLUME 9.6 fL (9.2-13.0); MONOCYTES 7.6 %; MONOCYTES ABSOLUTE 1.03 10/3/uL (0.21-1.20); NEUTROPHILS 82.9 %; NEUTROPHILS ABSOLUTE 11.22 10/3/uL (2.02-8.40); PLATELET COUNT 375 10/3/uL (150-400); RBC DISTRIBUTION WIDTH 13.9 % (12.0-16.0); RED CELL COUNT 4.63 10/6/uL (4.7-6.1); WHITE BLOOD CELLS 13.5 10/3/uL (4.5-10.5)
[2016-09-22 05:09] LABS: MANUAL DIFF NO %
[2016-09-22 05:17] LABS: BUN (BLOOD UREA NITROGEN) 8 MG/DL (6-23); CALCIUM, SERUM 8.2 MG/DL (8.5-10.4); CHLORIDE, SERUM 107 MMOL/L (96-112); CREATININE 0.58 MG/DL (0.70-1.30); GFR AFRICAN AMERICAN 132 ML/MIN (>=60); GFR NON AFRICAN AMERICAN 114 ML/MIN (>=60); GLUCOSE, SERUM 89 MG/DL (60-99); PHOSPHORUS, SERUM 2.7 MG/DL (2.5-4.5); POTASSIUM, SERUM 3.5 MMOL/L (3.5-5.3); SODIUM, SERUM 139 MMOL/L (135-148)
[2016-09-22 05:24] LABS: CO2 (CARBON DIOXIDE) 21 MMOL/L (24-34)
[2016-09-23] MEDS ORDERED: FLAG500TAB PO (10:51)
[2016-09-23] MEDS ORDERED: LEVAQUIN750 MG PO (10:51)
[2017-02-09] MEDS ORDERED: NATURE-THRO113.75 MG PO (03:34)
[2017-02-09] MEDS ORDERED: TESTOST CYP100 MG/ML IM (03:35)
[2017-02-09] MEDS ORDERED: ASABAYER PO (03:38)
[2017-02-09] MEDS ORDERED: ARIMIDEX1 PO (03:38)
[2017-02-09] MEDS ORDERED: MAXIMUM D3 PO (03:39)
[2017-02-09] MEDS ORDERED: FISH OIL OTC PO (03:40)
[2017-02-09] MEDS ORDERED: ZOFRAN4 PO (03:40)
[2017-02-09] MEDS ORDERED: CIP5 PO (03:41)
[2017-02-09] MEDS ORDERED: FLAG500TAB PO (03:42)
[2017-02-16] MEDS ORDERED: ACET500CAP PO (12:49)
[2017-02-16] MEDS ORDERED: OXYCOD PO (12:49)
== END 2016-09-23 18:28 | disposition home or self-care (01) | DRG 392 ==
LOC: ER 22:23 → 4SO 09-14 00:48
PROVIDERS: Colon & Rectal Surgery; Emergency Medicine; Hospitalist; Internal Medicine; Surgery
DX: K57.20 Diverticulitis of large intestine with perforation and abscess without bleeding (principal); K56.5 Intestinal adhesions [bands] with obstruction (postinfection); I95.9 Hypotension, unspecified; R18.8 Other ascites; I48.91 Unspecified atrial fibrillation; K56.69 Other intestinal obstruction; I45.6 Pre-excitation syndrome; I10 Essential (primary) hypertension; E03.9 Hypothyroidism, unspecified; Z98.890 Other specified postprocedural states; Z88.5 Allergy status to narcotic agent; Z87.891 Personal history of nicotine dependence; Z79.82 Long term (current) use of aspirin
CPT/HCPCS: 74000; 74020; 74176; 74177; 74250; 80048; 80053; 80069; 81001; 82150; 83605; 83690; 83735; 84100; 84132; 84443; 85025; 85610; 85730; 87040; 96374; 96375; 97161-GP; 99285; A9270-GY; C9113; J1170; J1956; J2405; J2543; Q9967